=== PATIENT | female | born 1985 | race Caucasian/White ===

== ENCOUNTER 2017-03-16 20:12 | Emergency (ER) | payer OTHER ==
[~2017-03-16 20:12] MED LIST: AMOXICILLIN PO; ANAPROX DS550 M1 PO; ANTIFUNGAL30 GM TP; IBUPROFEN PO; IBUPROFEN800 MG PO; ORUDIS75 M1 PO; PRENATAL VITAMI1 TA3 PO; TYLENOL #3 PO; VICODIN 5/1 TAB 5/50 PO; VISTARIL PO
== END 2017-03-16 21:32 | disposition home or self-care (01) ==
LOC: CFTX 20:12 → CED 20:12 → CFTX 21:03
DX: Z48.01 Encounter for change or removal of surgical wound dressing (principal); Z88.8 Allergy status to other drugs, medicaments and biological substances; Z79.899 Other long term (current) drug therapy
CPT/HCPCS: 99282; 99283

== ENCOUNTER 2017-05-25 11:18 | Emergency (ER) | payer OTHER ==
[~2017-05-25] VITALS: Ht 167.6 cm; Wt 127.0 kg
--- NOTE | ~2017-05-25 | CT2 ---
[facility] A Service of [facility] RADIOLOGY TEXT RESULTS PATIENT: JOYCE TORREZ LOCATION: [facility] : 86 UNIT #: [id number] AGE: [address]: Christina Blevins APRN SEX: F ORDER DR: [id number] [facility] [address] [place], [place] [address] [id number] E MR#: [id number] Acc #: [id number] NAME: JOYCE TORREZ : 1985 SEX: F STUDY DATE/TIME: 05/25/2017 13:09 UNIT: [facility] ROOM: STUDY DESCRIPTION: CT Abd and Pelv W Cont Attending Physician: Christina Blevins A.P.R.N. Ordering Physician: Ed Lupillo Moyer M.D. Primary Care Physician: Primary Care Physician No MEDICAL IMAGING REPORT This report is preliminary unless electronic signature is present EXAM CT abdomen and pelvis with contrast INDICATION Lower abdominal pain and heavy vaginal bleeding for the past 24 hours. Patient is 10 weeks status post . PROCEDURE Contrast-enhanced CT of the abdomen and pelvis. This CT exam was performed with one or more of the following radiation dose reduction techniques: automatic exposure control, adjustment of mA and/or kV according to patient size, and iterative reconstruction. COMPARISON 04/28/2016 FINDINGS Included lung bases are clear. Liver enlarged measuring 20 cm. No liver or splenic mass. Kidneys, adrenal glands, pancreas unremarkable. Previous cholecystectomy. Bowel loops are nondilated. PELVIS WITH CONTRAST: There are bilateral adnexal cysts, 4.4 cm on the right and 3.3 cm on the left. No free pelvic fluid. No aggressive-appearing bone lesion. IMPRESSION 1. No clearly acute finding. 2. Bilateral adnexal cysts, probably physiologic given the patient's age. There is no organized fluid collection. [facility] A Service [facility] RADIOLOGY TEXT RESULTS PATIENT: JOCYE TORREZ LOCATION: [facility] : 86 UNIT #: [id number] AGE: [address]: Christina Blevins APRN SEX: F ORDER DR: 3. Hepatomegaly. Dictated by... Eliel Caban M.D. THIS IS AN ELECTRONICALLY VERIFIED REPORT Eliel Caban M.D. at 05/27/2017 5:01 PM RAADD/oc TD: 05/25/2017 22:47 JOB #: [id number] MEDICAL IMAGING REPORT Page 1 of 1 COPY
--- NOTE | ~2017-05-25 | US98 ---
[facility] A Service of [facility] & [facility] RADIOLOGY TEXT RESULTS PATIENT: JOYCE TORREZ LOCATION: [facility] : 87 UNIT #: [id number] AGE: [address]: Christina Blevins APRN SEX: F ORDER DR: [id number] [facility] [address] [place], [place] [address] [id number] E MR#: [id number] Acc #: [id number] NAME: JOYCE TORREZ : 1985 SEX: F STUDY DATE/TIME: 05/25/2017 14:50 UNIT: [facility] ROOM: STUDY DESCRIPTION: US Pelvic Non-OB Complete Attending Physician: Christina Blevins A.P.R.N. Ordering Physician: Ed Lupillo Moyer M.D. Primary Care Physician: Primary Care Physician No MEDICAL IMAGING REPORT This report is preliminary unless electronic signature is present EXAM Pelvic ultrasound, transabdominal and transvaginal 05/25/2017 INDICATIONS 31-year-old female with pain since last night, pain diffusely throughout the lower abdomen, 2 prior C-sections, history of tubal ligation. 2 weeks ago. TECHNIQUE Sonographic imaging of the pelvis was performed transabdominally and then transvaginally for better evaluation of the adnexa and ovarian structures. Correlation is made with CT same date. Correlation is made with prior ultrasound of 12/13/2015. FINDINGS TRANSABDOMINAL IMAGING: Uterus measures 10.9 x 5.6 x 6.1 cm. It is better characterized transvaginally. Neither ovary is seen transabdominally. TRANSVAGINAL IMAGING: Uterine dimensions are about 8.4 x 5.0 x 5.1 cm. Endometrial stripe measures about 11 mm, in the normal range. Small amount of free fluid in the pelvis. The right ovary measures up to 4.3 cm and demonstrates good flow. The left ovary is not well visualized, due to bowel gas, but what is labeled the left ovary measures up to about 3.2 cm and also demonstrates good flow at the time of the study. There are follicles in the right ovary and there is a dominant, hypoechoic, solid structure in the right ovary, measuring up to 4.1 cm. There is, however, increased through-transmission and despite the solid appearance on ultrasound, this is favored to represent a proteinaceous or hemorrhagic cyst or endometrioma, rather than a solid ovarian mass. Suggest follow-up ultrasound in 6-8 weeks, after subsequent menstrual cycles for reassessment of stability or interval STS. [facility] A Service of [facility] RADIOLOGY TEXT RESULTS PATIENT: JOYCE TORREZ LOCATION: [facility] : 86 UNIT #: [id number] AGE: [address]: Christina Blevins APRN SEX: F ORDER DR: decrease in size. There is an incidental cyst in the left adnexa, probably arising from the left ovary or representing a parovarian cyst measuring 4.2 x 3.4 cm. This can also be reassessed at the time of followup of the right ovary. IMPRESSION 1. Both ovaries demonstrate good flow at the time of the study. No endometrial thickening. Trace free fluid in the pelvis. 2. There is a mass in the right ovary favored to represent a proteinaceous or hemorrhagic cyst or endometrioma, rather than a solid ovarian mass. Suggest a follow-up ultrasound in 6-8 weeks, after subsequent menstrual cycles for reassessment of stability or interval decrease in size. 3. Benign appearing cyst associated with the left ovary/adnexa. This can also be reassessed at the time of followup of the right ovary. Dictated by... Siddharth Molina M.D. THIS IS AN ELECTRONICALLY VERIFIED REPORT Siddharth Molina M.D. at 05/26/2017 11:42 AM ZAIRE/ralph TD: 05/25/2017 23:51 JOB #: [id number] MEDICAL IMAGING REPORT Page 1 of 1 COPY
[2017-05-25 12:19] LABS: BASOPHIL% 0.3 % (0-2.5); EOSINOPHIL# 0.1 X10e3 (0-0.7); EOSINOPHIL% 1.3 % (0.0-7.0); HEMATOCRIT 38.2 % (35.0-45.0); LYMPHOCYTE% 22.4 % (17.0-45.0); MEAN CELL VOLUME 88.5 FL (83-96); MEAN CORPUSCULAR HEMOGLOBIN 30.2 PG (28-34); MEAN CORPUSCULAR HGB CONC 34.2 g/dL (30-36); MEAN PLATELET VOLUME 9.2 FL (6.5-11.5); MONOCYTE# 0.5 X10e3 (0-1.0); MONOCYTE% 6.1 % (3.0-12.0); NEUTROPHIL# 6.3 X10e3 (1.5-7.1); NEUTROPHIL% 69.9 % (40-75); PLATELET COUNT 283 X10e3 (140-420); RED BLOOD COUNT 4.32 X10e (3.90-5.30); RED CELL DISTRIBUTION WIDTH 13.5 % (11.0-15.5)
[2017-05-25 12:21] LABS: DIFF IND NO
[2017-05-25 12:45] LABS: ALBUMIN SERUM 4.2 g/dL (3.5-5.0); BILIRUBIN, DIRECT 0.1 mg/dL (0.0-0.2); BILIRUBIN,INDIRECT 0.5 mg/dL (0.0-0.9); BILIRUBIN,TOTAL 0.6 mg/dL (0.2-2.0); BUN/CREATININE RATIO 22.85; CALCIUM SERUM 9.5 mg/dL (8.4-10.2); CREATININE SERUM 0.7 mg/dL (0.6-1.4); GLOM FILT RATE Estimated 116.3 mL/min (>60); POTASSIUM 3.9 mmol/L (3.5-5.1); PROTEIN TOTAL SERUM 7.9 g/dL (6.0-8.3)
[2017-05-25 13:35] LABS: URINE SOURCE CLEAN CATCH
[2017-05-25 13:43] LABS: URINE APPEARANCE CLEAR; URINE BILIRUBIN NEG (NEG); URINE BLOOD 3+ (NEG); URINE COLOR YELLOW; URINE GLUCOSE NEG (NEG); URINE KETONE NEG (NEG); URINE LEUKOCYTE ESTERASE 1+ (NEG); URINE NITRATE NEG (NEG); URINE PROTEIN NEG (NEG); URINE SPECIFIC GRAVITY 1.026 (1.003-1.035); URINE UROBILINOGEN 0.2 MG/DL (NEG)
[2017-05-25 13:45] LABS: URINE BACTERIA AUWI NEG (NEGATIVE); URINE SQUAMOUS EPITHELIAL CELL OCC /[HPF]
[2017-05-25 13:48] LABS: CULTURE INDICATED? NO
[2017-05-27 16:08] LABS: CHLAMYDIA TRACH Not Detected (Not Detected); N GONOR Not Detected (Not Detected)
== END 2017-05-25 15:35 | disposition home or self-care (01) ==
LOC: CFTX 11:18 → CED 11:18 → CFTX 12:08
PROVIDERS: Nurse Practitioner
DX: R10.2 Pelvic and perineal pain (principal); Z90.49 Acquired absence of other specified parts of digestive tract
CPT/HCPCS: 36415; 74177; 76830; 76856; 80048; 80076; 81003; 83690; 84703; 85025; 87491; 87591; 87808; 96361; 96374; 96375; 99284; J2270; J2405; J2550; Q9967

== ENCOUNTER 2017-06-07 20:41 | Emergency (ER) | payer OTHER ==
[~2017-06-07] VITALS: Ht 167.6 cm; Wt 130.2 kg
--- NOTE | ~2017-06-07 | CR63 ---
[facility] A Service [facility] RADIOLOGY TEXT RESULTS PATIENT: JOYCE TORREZ LOCATION: [facility] : 86 UNIT #: [id number] AGE: [address]: Omar Ewing MD SEX: F ORDER DR: [id number] [facility] [address] [place], [place] [address] [id number] E MR#: [id number] Acc #: [id number] NAME: JOYCE TORREZ : 1985 SEX: F STUDY DATE/TIME: 06/07/2017 2230 UNIT: [facility] ROOM: STUDY DESCRIPTION: CR Chest 2 View Attending Physician: Omar Ewing M.D. Ordering Physician: Omar Ewing M.D. Primary Care Physician: No Primary Care Physician MEDICAL IMAGING REPORT This report is preliminary unless electronic signature is present EXAM Chest x-ray, 06/07 at 2230. INDICATION Cough and chest pain that started this morning. COMPARISON 01/30/2016 FINDINGS PA and lateral examination of the chest upright shows a good expansion of the parenchyma with a normal distribution of the pulmonary vascularity. There is no indication of congestion, effusion, infiltrate, tumor, or nodular density. The pleural reflections and diaphragmatic contours are normal. The cardiac silhouette and mediastinal anatomy is within normal limits. IMPRESSION Normal chest. Dictated by... Omar Ivan Jr., M.D. THIS IS AN ELECTRONICALLY VERIFIED REPORT Omar Ivan Jr., M.D. at 06/09/2017 3:12 AM HENRIK/osman TD: 06/08/2017 19:40 JOB #: [id number] MEDICAL IMAGING REPORT [facility] A [facility] RADIOLOGY TEXT RESULTS PATIENT: JOYCE TORREZ LOCATION: [facility] : 86 UNIT #: [id number] AGE: [address]: Omar Ewing MD SEX: F ORDER DR: Page 1 of 1 COPY
[2017-06-07 22:06] LABS: URINE SOURCE CLEAN CATCH
[2017-06-07 22:12] LABS: URINE APPEARANCE CLOUDY; URINE BILIRUBIN NEG (NEG); URINE BLOOD NEG (NEG); URINE COLOR YELLOW; URINE GLUCOSE NEG (NEG); URINE KETONE NEG (NEG); URINE LEUKOCYTE ESTERASE TRACE (NEG); URINE NITRATE NEG (NEG); URINE PROTEIN NEG (NEG); URINE SPECIFIC GRAVITY 1.017 (1.003-1.035)
[2017-06-07 22:16] LABS: URINE BACTERIA AUWI 1+ (NEGATIVE); URINE SQUAMOUS EPITHELIAL CELL FEW /[HPF]
[2017-06-07 23:14] LABS: BASOPHIL# 0.1 X10e3 (0-0.3); BASOPHIL% 1.1 % (0-2.5); EOSINOPHIL# 0.1 X10e3 (0-0.7); EOSINOPHIL% 1.8 % (0.0-7.0); HEMATOCRIT 38.8 % (35.0-45.0); HEMOGLOBIN 12.9 gm/dL (12.0-16.0); LYMPHOCYTE# 2.3 X10e3 (1.0-3.5); MEAN CELL VOLUME 88.7 FL (83-96); MEAN CORPUSCULAR HEMOGLOBIN 29.4 PG (28-34); MEAN CORPUSCULAR HGB CONC 33.2 g/dL (30-36); MEAN PLATELET VOLUME 9.3 FL (6.5-11.5); MONOCYTE# 0.4 X10e3 (0-1.0); MONOCYTE% 5.9 % (3.0-12.0); NEUTROPHIL# 4.5 X10e3 (1.5-7.1); NEUTROPHIL% 60.2 % (40-75); PLATELET COUNT 252 X10e3 (140-420); RED BLOOD COUNT 4.38 X10e (3.90-5.30); RED CELL DISTRIBUTION WIDTH 13.9 % (11.0-15.5); WHITE BLOOD COUNT 7.5 X10e3 (4.0-10.5)
[2017-06-07 23:16] LABS: DIFF IND NO
[2017-06-07 23:39] LABS: ALBUMIN SERUM 4.2 g/dL (3.5-5.0); BILIRUBIN, DIRECT 0.1 mg/dL (0.0-0.2); BILIRUBIN,INDIRECT 0.4 mg/dL (0.0-0.9); BILIRUBIN,TOTAL 0.5 mg/dL (0.2-2.0); BUN/CREATININE RATIO 23.33; CALCIUM SERUM 9.4 mg/dL (8.4-10.2); CREATININE SERUM 0.6 mg/dL (0.6-1.4); GLOM FILT RATE Estimated 122.3 mL/min (>60); POTASSIUM 4.3 mmol/L (3.5-5.1); PROTEIN TOTAL SERUM 7.5 g/dL (6.0-8.3)
== END 2017-06-08 00:26 | disposition home or self-care (01) ==
LOC: CED 20:41
PROVIDERS: Emergency Medicine
DX: N30.00 Acute cystitis without hematuria (principal); Z88.8 Allergy status to other drugs, medicaments and biological substances
CPT/HCPCS: 36415; 71020; 80048; 80076; 81003; 82150; 83690; 84703; 85025; 96374; 99284; J1885

== ENCOUNTER → 2017-06-25 | Outpatient (CLI) | payer OTHER ==
--- NOTE | ~2017-06-25 | CR169 ---
[facility] A Service [facility] RADIOLOGY TEXT RESULTS PATIENT: JOYCE TORREZ LOCATION: [facility] : 86 UNIT #: [id number] AGE: [address]: FRANCK CONTRERAS SEX: F ORDER DR: [id number] [id number] [place], [place] [address] [id number] O MR#: [id number] Acc #: [id number] NAME: JOYCE TORREZ : 1985 SEX: F STUDY DATE/TIME: 06/25/2017 12:29 UNIT: [facility] ROOM: STUDY DESCRIPTION: CR Knee 2 Views Lt Attending Physician: Franck Contreras M.D. Referring Physician: Frankc Contreras M.D. Ordering Physician: Franck Contreras M.D. Primary Care Physician: Franck Contreras M.D. MEDICAL IMAGING REPORT This report is preliminary unless electronic signature is present EXAM Left knee 06/25/2017 HISTORY 31-year-old female with left knee pain for 2 years. COMPARISON STUDIES Left knee 01/01/2014. FINDINGS 2 views of the left knee demonstrate no acute fracture or dislocation. No joint effusion. Joint spaces are normal. There is minimal fragmentation at the tibial tubercle which may suggest the sequelae of remote Ely-Schlatter's disease. Mild patella maciej. IMPRESSION 1. No acute fracture or dislocation. 2. Mild patella maciej. 3. Chronic-appearing fragmentation at the tibial tubercle which may suggest the sequelae of remote Banner-Schlatter disease. Dictated by... Rick Reed M.D. THIS IS AN ELECTRONICALLY VERIFIED REPORT Rick Reed M.D. at 06/26/2017 1:51 PM MARYAN/sneha TD: 06/25/2017 18:23 JOB #: [id number] MEDICAL IMAGING REPORT [facility] A Service [facility] RADIOLOGY TEXT RESULTS PATIENT: JOYCE TORREZ LOCATION: [facility] : 86 UNIT #: [id number] AGE: [address]: FRANCK CONTRERAS SEX: F ORDER DR: Page 1 of 1 COPY
--- NOTE | ~2017-06-25 | CR181 ---
[facility] A Service of [facility] & [facility] RADIOLOGY TEXT RESULTS PATIENT: JOYCE TORREZ LOCATION: [facility] : 86 UNIT #: [id number] AGE: [address]: FRANCK CONTRERAS SEX: F ORDER DR: [id number] [place] [address] [place], [place] [address] [id number] O MR#: [id number] Acc #: [id number] NAME: JOYCE TORREZ : 1985 SEX: F STUDY DATE/TIME: 06/25/2017 12:28 UNIT: [facility] ROOM: STUDY DESCRIPTION: CR Lumbar Spine 2 or 3 Views Attending Physician: Franck Contreras M.D. Referring Physician: Franck Contreras M.D. Ordering Physician: Franck Contreras M.D. Primary Care Physician: Franck Contreras M.D. MEDICAL IMAGING REPORT This report is preliminary unless electronic signature is present EXAM Lumbar spine 06/25/2017 HISTORY 31-year-old female with low back pain for 4 months status post fall [address] abdomen and pelvis 05/25/2017. FINDINGS 3 views lumbar spine demonstrate no acute fracture or subluxation. Vertebral body heights and alignment are normal. Disc space and facets are within expected limits. Sacrum and SI joints intact. IMPRESSION Unremarkable lumbar spine. Dictated by... Rick Reed M.D. THIS IS AN ELECTRONICALLY VERIFIED REPORT Rick Reed M.D. at 06/26/2017 1:51 PM MARYAN/sneha TD: 06/25/2017 18:21 JOB #: [id number] MEDICAL IMAGING REPORT Page 1 of 1 COPY
--- NOTE | ~2017-06-25 | CR170 ---
[facility] A Service of [facility] & [facility] RADIOLOGY TEXT RESULTS PATIENT: JOYCE TORREZ LOCATION: [facility] : 86 UNIT #: [id number] AGE: [address]: FRANCK CONTRERAS SEX: F ORDER DR: [id number] [facility] [address] [place], [place] [address] [id number] O MR#: [id number] Acc #: [id number] NAME: JOYCE TORREZ : 1985 SEX: F STUDY DATE/TIME: 06/25/2017 12:31 UNIT: [facility] ROOM: STUDY DESCRIPTION: CR Knee 2 Views Rt Attending Physician: Franck Contreras M.D. Referring Physician: Franck Contreras M.D. Ordering Physician: Franck Contreras M.D. Primary Care Physician: Franck Contreras M.D. MEDICAL IMAGING REPORT This report is preliminary unless electronic signature is present EXAM Right knee 06/25/2017 HISTORY 31-year-old female with right knee pain for 2 years. COMPARISON Right knee 09/12/2010 FINDINGS 2 views of the right knee demonstrate no acute fracture or dislocation. No joint effusion. Joint spaces are normal. Mild patella maciej. Soft tissues are unremarkable. IMPRESSION No acute fracture or dislocation. Mild patella maciej. Dictated by... Rick Reed M.D. THIS IS AN ELECTRONICALLY VERIFIED REPORT Rick Reed M.D. at 06/26/2017 1:51 PM MARYAN/kim TD: 06/25/2017 18:34 JOB #: [id number] MEDICAL IMAGING REPORT Page 1 of 1 COPY
== END | disposition home or self-care (01) ==
LOC: CRAD 11:57
DX: M54.5 Low back pain (principal); M22.8X1 Other disorders of patella, right knee; M22.8X2 Other disorders of patella, left knee
CPT/HCPCS: 72100; 73560